=== PATIENT | female | born 1985 | race Caucasian/White ===

== ENCOUNTER 2020-02-18 10:47 | Observation (INO) | payer OTHER ==
[2020-02-18 10:35] VITALS: BP 111/68
[~2020-02-18 10:47] MED LIST: PREN-217 PO
== END 2020-02-18 13:05 | disposition home or self-care (01) ==
LOC: 4S 10:47
PROVIDERS: ADMIT Obstetrics & Gynecology; ATTEND Obstetrics & Gynecology
DX: O09.523 Supervision of elderly multigravida, third trimester (principal); Z3A.37 37 weeks gestation of pregnancy
CPT/HCPCS: 59025; 99219

== ENCOUNTER 2020-02-24 09:55 | Observation (INO) | payer OTHER ==
[2020-02-25 14:55] VITALS: BP 110/67
== END 2020-02-25 15:30 | disposition home or self-care (01) ==
LOC: 4S 02-25 14:16
PROVIDERS: ADMIT Obstetrics & Gynecology; ATTEND Obstetrics & Gynecology
DX: O36.5930 Maternal care for other known or suspected poor fetal growth, third trimester, not applicable or unspecified (principal); Z3A.38 38 weeks gestation of pregnancy
CPT/HCPCS: 59025; 76811; 99219

== ENCOUNTER 2020-02-28 11:32 | Inpatient (IN) | payer OTHER ==
[~2020-02-28] VITALS: Ht 162.6 cm; Wt 66.7 kg
[2020-02-28] MEDS ORDERED: OXYTOCIN 30 UNITS/LACT RINGERS 500 ML IV ONE ×2 (11:51→12:00)
[2020-02-28] MEDS ORDERED: FentaNYL CITRATE-PF 100 MCG/2 ML VIAL IVP PRN (12:00)
[2020-02-28] MEDS ORDERED: RINGERS SOLUTION,LACTATED 1,000 ML IV SCH (12:00)
[2020-02-28] MEDS ORDERED: METOCLOPRAMIDE HCL 5 MG/ML 2 ML VIAL IVP PRN (12:00)
[2020-02-28] MEDS ORDERED: METHYLERGONOVINE MALEATE 0.2 MG/ML VIAL IM PRN (12:00)
[2020-02-28] MEDS ORDERED: TERBUTALINE SULFATE 1 MG/ML VIAL SQ PRN (12:00)
[2020-02-28] MEDS ORDERED: RINGERS SOLUTION,LACTATED 1,000 ML IV PRN (12:00)
[2020-02-28] MEDS ORDERED: CITRIC ACID/SODIUM CITRATE 30 ML SOLUTION UDCUP PO PRN (12:00)
[2020-02-28] MEDS ORDERED: LIDOCAINE/PF 1% 30 ML VIAL INJ PRN (12:00)
[2020-02-28 13:00] VITALS: BP 133/56
[2020-02-28] MEDS ORDERED: LANOLIN 7 GM OINTMENT TP PRN (13:15)
[2020-02-28] MEDS ORDERED: MEASLES/MUMPS/RUBELLA VACCINE, LIVE 0.5 ML/VIAL SQ ONE (13:15)
[2020-02-28] MEDS ORDERED: OxyCODONE HCL/ACETAMINOPHEN 5-325 MG TABLET PO PRN ×2 (13:15)
[2020-02-28] MEDS ORDERED: RINGERS SOLUTION,LACTATED 1,000 ML IV ONE (13:15)
[2020-02-28] MEDS ORDERED: GLYCERIN/WITCH HAZEL LEAF 40 PADS JAR TP PRN (13:15)
[2020-02-28] MEDS ORDERED: BENZOCAINE 20%/MENTHOL 56 GM SPRAY CANISTER TP PRN (13:15)
[2020-02-28 14:56] LABS: BASOPHILS % (AUTO) 0.3 % (0.0-2.0); EOSINOPHILS % (AUTO) 0 % (1.0-6.0); HEMATOCRIT 38.6 % (36-46); LYMPHOCYTES # (AUTO) 0.4 K/uL (1.0-4.8); LYMPHOCYTES % (AUTO) 3.7 % (22.0-44.0); MEAN CORPUSCULAR HEMOGLOBIN 32.5 pg (26.0-34.0); MEAN CORPUSCULAR HGB CONC 33.8 G/dL (31.0-37.0); MEAN CORPUSCULAR VOLUME 96 fL (80-100); MONOCYTES # (AUTO) 0.2 K/uL (0.1-1.0); MONOCYTES % (AUTO) 1.4 % (2.0-9.0); NEUTROPHILS # (AUTO) 10.5 K/uL (1.8-7.7); PLATELET COUNT (AUTO)-OB 226 K/uL (150-450); RED BLOOD CELL COUNT(AUTO) 4.01 MIL/uL (4.00-5.20); RED CELL DISTRIBUTION WIDTH 12.2 % (11.5-14.5)
[2020-02-28 14:59] LABS: NEUTROPHILS % (AUTO) 94.6 % (40.0-70.0)
[2020-02-28 19:24] LABS: COVID AG,FIA SOURCE NASOPHARYNGEAL
[2020-02-28] MEDS ORDERED: OXYGEN THERAPY IH SCH (20:00)
[2020-02-28] MEDS: IBUPROFEN 600 MG TABLET PO PRN (21:23)
[2020-02-28] MEDS ORDERED: INFLUENZA VIRUS VACCINE QVS 2020-21 (6MO+)/PF 60 MCG/0.5 ML SYRINGE IM ONE (22:15)
[2020-02-28] MEDS: MAGNESIUM HYDROXIDE SUSPENSION 30 ML UDCUP PO SCH (22:51)
[2020-02-29] MEDS: MAGNESIUM HYDROXIDE SUSPENSION 30 ML UDCUP PO SCH (09:00)
[2020-02-29] MEDS: IBUPROFEN 600 MG TABLET PO PRN (11:06)
[2020-02-29] MEDS ORDERED: IBUP-2070 PO (11:33)
== END 2020-02-29 13:55 | disposition home or self-care (01) | DRG 807 ==
LOC: OBSVTOIN 11:32 → 4S 11:32
PROVIDERS: ADMIT Obstetrics & Gynecology; ATTEND Obstetrics & Gynecology
PROC: 10E0XZZ Delivery of Products of Conception, External Approach (ICD-10-PCS; principal; 2020-02-28)
PROC: 0KQM0ZZ Repair Perineum Muscle, Open Approach (ICD-10-PCS; 2020-02-28)
PROC: 3E0R3BZ Introduction of Anesthetic Agent into Spinal Canal, Percutaneous Approach (ICD-10-PCS; 2020-02-28)
PROC: 00HU33Z Insertion of Infusion Device into Spinal Canal, Percutaneous Approach (ICD-10-PCS; 2020-02-28)
DX: O70.1 Second degree perineal laceration during delivery (principal); Z37.0 Single live birth; Z20.828 Contact with and (suspected) exposure to other viral communicable diseases; Z3A.39 39 weeks gestation of pregnancy
CPT/HCPCS: 86850; 86900; 86901; 87426; J2590; J3490; J7120